=== PATIENT | male | born 1955 | race Caucasian/White ===

== ENCOUNTER 2016-09-05 09:32 | Emergency (ER) | payer OTHER ==
[2016-09-05 09:37] VITALS: BP 156/84; PULSE 67; RESP 18; TEMP 97.9; O2SAT 94
--- NOTE | 2016-09-05 09:55 | EDPHY ---
H & P Stated Complaint: L side facial droop since monday Time Seen by Provider: 09/05/16 09:39 HPI/ROS: CHIEF COMPLAINT: Left facial weakness HISTORY OF PRESENT ILLNESS: The patient presents to the emergency department with left facial weakness which has been present since Monday. The patient denies any associated numbness. He denies any peripheral complaints of numbness or weakness. The patient denies headache, ataxia, dysarthria or aphasia. The patient does have a pacemaker. He denies anticoagulant use. He does take a baby aspirin on a daily basis. REVIEW OF SYSTEMS: A comprehensive 10 point review of systems is otherwise negative aside from elements mentioned in the history of present illness. Source: Patient Exam Limitations: No limitations - Personal History Current Tetanus Diphtheria and Acellular Pertussis (TDAP): Yes - Medical/Surgical History Hx Asthma: No Hx Chronic Respiratory Disease: No Hx Diabetes: Yes Hx Cardiac Disease: Yes Hx Renal Disease: No Hx Cirrhosis: No Hx Alcoholism: No Hx HIV/AIDS: No Hx Splenectomy or Spleen Trauma: No Other PMH: PACERMAKER, HTN, HIGH CHOLD, NON FATTYSTEATO HEPATITIS (FATTY LIVER), CARPAL DONALDO SURG, DEVIATED SEPTUM, diabetes, trigger finger surgery - Social History Smoking Status: Never smoked - Physical Exam Exam: General Appearance: Alert, no distress Eyes: Pupils equal and round no pallor or injection ENT, Mouth: Mucous membranes moist Respiratory: There are no retractions, lungs are clear to auscultation Cardiovascular: Regular rate and rhythm Gastrointestinal: Abdomen is soft and nontender, no masses, bowel sounds normal Neurological: Alert and oriented x4, 5/5 strength noted all 4 extremities, cranial nerves 2-12 intact aside from a left 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 Skin: Warm and dry, no rashes Musculoskeletal: Neck is supple nontender Extremities: symmetrical, full range of motion Psychiatric: Patient is oriented X 3, there is no agitation Constitutional: Initial Vital Signs Temperature (C) 36.6 C 09/05/16 09:35 Heart Rate 67 09/05/16 09:35 Respiratory Rate 18 09/05/16 09:35 Blood Pressure 156/84 H 09/05/16 09:35 O2 Sat (%) 94 09/05/16 09:35 O2 Delivery Mode Room Air Allergies/Adverse Reactions: No Known Allergies Allergy (Unverified 03/25/14 23:05) Home Medications: Medication Instructions Recorded metFORMIN SR [Glucophage Xr] 2,000 mg PO DAILY@1800 12/29/09 sitaGLIPtin PHOSPHATE [Januvia 100 100 mg PO HS 12/29/09 MG (RX)] clonIDINE [Catapres (RX)] 0.1 mg PO HS 02/24/10 Atorvastatin Calcium [Lipitor 10 10 mg PO HS 03/25/14 mg (RX)] Diltiazem HCl [Cartia Xt] 120 mg PO HS 03/25/14 Losartan/Hydrochlorothiazide 1 each PO HS 03/25/14 [Hyzaar 100-25 Tablet] Aspirin [Aspirin 81mg (OTC)] 81 mg PO HS 03/28/14 Hydrocodone/APAP 5/325 [Racine 1 each PO DAILY PRN 03/28/14 5/325 (RX)] traMADol [Ultram] 50 mg PO DAILY PRN 03/28/14 Hydrocodone/Acetaminophen [[place]ac[place] 1 - 2 tab PO Q6H PRN #20 tab 03/29/14 5/325 (RX)] Meth/Meblue/Sod Phos/Psal/Hyos 1 each PO QID #20 capsule 03/29/14 [Uribel Capsule] Valacyclovir HCl [Valtrex] 1,000 mg PO TID #21 tab 09/05/16 predniSONE [prednisone 20mg (RX)] 3 tab PO DAILY #15 tab 09/05/16 Medical Decision Making ED Course/Re-evaluation: The patient presents to the emergency department with a clear case of a cranial nerve 7 palsy. The patient has no additional neurologic deficits noted on exam. The patient also has a pacemaker precluding MRI studies. I do feel the patient can be treated clinically based upon his presentation today. He will be discharged home with a prescription for Valtrex and prednisone. He is given customary aftercare instructions and return precautions. Departure - Departure Disposition: Home, Routine, Self-Care Clinical Impression: Shook's palsy Condition: Good Instructions: Shook Palsy (ED) Additional Instructions: 1. Take Valtrex and prednisone as directed. 2. Please use Lacri-Lube and artificial tears as needed for ocular irritation. 3. Please return to the emergency department should you developed new numbness, weakness, headache or new neurologic symptoms. 4. Please follow up as scheduled with your primary care provider. Referrals: Endy Cali MD [Primary Care Provider] - As per Instructions
== END 2016-09-05 10:10 | disposition home or self-care (01) ==
DX: G51.0 Bell's palsy (principal); E11.9 Type 2 diabetes mellitus without complications; I10 Essential (primary) hypertension; Z79.84 Long term (current) use of oral hypoglycemic drugs; Z79.82 Long term (current) use of aspirin; Z95.0 Presence of cardiac pacemaker

== ENCOUNTER → 2017-11-29 | Outpatient (CLI) | payer OTHER | LOC: FIMAGING 07:02 | PROVIDERS: ATTEND Orthopaedic Surgery | DX: M17.11 Unilateral primary osteoarthritis, right knee (principal); M25.461 Effusion, right knee ==

== ENCOUNTER 2017-12-12 06:25 | Observation (INO) | payer OTHER ==
--- NOTE | 2017-12-07 22:22 | GHP ---
[f rep st] HISTORY AND PHYSICAL CURRENT COMPLAINT: Right knee pain. HISTORY OF PRESENT ILLNESS: Mr. Taylor is a 62-year-old male with a long history of right knee pain, worsening with use and with time despite multiple conservative measures. He has gaik-fx-agiy osteoa rthritic changes in the knee and would like surgery in order to resolve the problem. ALLERGIES: He lists no drug allergies. CURRENT MEDICATIONS: Include cardia XT, clonidine, losartan with hydrochlorothiazide, metformin, mom etasone, pravastatin, ProAir, spironolactone. PRIOR MEDICAL PROBLEMS: Include arthritis, diabetes, high cholesterol, hepatitis, pacemaker, sleep a pnea. PRIOR SURGERIES: Include a trigger finger release, pacemaker, carpal tunnel release. SOCIAL HISTORY: He has never been a smoker. He is a moderate drinker. PHYSICAL EXAM: The patient has a mild varus angulation to his knee. He has osteophytic spurring not ed to the medial compartment with a slight gap to valgus stress suggesting loss of cartilage height. ASSESSMENT AND PLAN: Patient is status post right knee arthroplasty. Plan is to take him to the ope rating room to undergo right knee replacement. /[id number]/MODL
[~2017-12-12 06:25] MED LIST: ROPIVACAINE 0.2% 80 MG, EPINEPHrine 0.2 MG, KETOROLAC TROMETHAMINE 30 MG, morphINE 10 M... IU ONE; TRANEXAMIC ACID 3,000 MG in NS (SYRINGE) 50 ML IRR ONE
[2017-12-12] MEDS ORDERED: LIDOCAINE 1% 2 ML INJ ONE (06:31)
[2017-12-12] MEDS ORDERED: ACETAMINOPHEN 500 MG TAB PO ONE (06:38)
[2017-12-12] MEDS ORDERED: ceFAZolin 2 GM/DEXTROSE 100 ML IV ONE (06:38)
[2017-12-12] MEDS ORDERED: PREGABALIN 150 MG CAP PO ONE (06:38)
[2017-12-12] MEDS ORDERED: LIDOCAINE 1% 2 ML INJ ID PRN ×2 (06:39→08:49)
[2017-12-12] MEDS ORDERED: LR 1,000 ML IV ONE ×2 (06:39→08:49)
[2017-12-12] MEDS ORDERED: BACITRACIN 50,000 UNITS/10 ML SYR IRR ONE (07:57)
[2017-12-12] MEDS ORDERED: TRANEXAMIC ACID 3,000 MG/50 ML BAG IRR ONE (07:57)
[2017-12-12] MEDS ORDERED: POLYMYXIN B SULFATE 500,000 UNIT/10 ML SYR IRR ONE (07:57)
[2017-12-12] MEDS ORDERED: THROMBIN (BOVINE) 5,000 UNIT VIAL TP ONE (07:57)
[2017-12-12] MEDS ORDERED: CALCIUM CHLORIDE 1 GM/10 ML INJ ONE (07:57)
[2017-12-12] MEDS ORDERED: MIDAZOLAM 2 MG/2 ML VIAL ONE (08:17)
[2017-12-12] MEDS ORDERED: MIDAZOLAM 2 MG/2 ML VIAL IVP ONE (08:19)
--- NOTE | 2017-12-12 08:19 | PDANEPAE ---
ANE History of Present Illness right knee resurfacing/TKA ANE Past Medical History - Cardiovascular History Hx Hypertension: Yes Hx Arrhythmias: Yes Hx Chest Pain: No Hx Coronary Artery / Peripheral Vascular Disease: No Hx CHF / Valvular Disease: No Hx Palpitations: No - Pulmonary History Hx COPD: No Hx Asthma/Reactive Airway Disease: No Hx Recent Upper Respiratory Infection: No Hx Oxygen in Use at Home: No Hx Sleep Apnea: Yes Sleep Apnea Screening Result - Last Documented: Positive Pulmonary History Comment: MAO uses CPAP - Neurologic History Hx Cerebrovascular Accident: No Hx Seizures: No Hx Dementia: No - Endocrine History Hx Diabetes: Yes Endocrine History Comment: type 11 - Renal History Hx Renal Disorders: No Renal History Comment: kidney stone - Liver History Hx Hepatic Disorders: Yes Hepatic History Comment: fatty liver - Neurological & Psychiatric Hx Hx Neurological and Psychiatric Disorders: No - Congenital Disorder History Hx Congenital Disorders: Yes Congenital History Comment: HTN,hypercholesterolemia - GI History Hx Gastrointestinal Disorders: No - Other Health History Other Health History: none - Chronic Pain History Chronic Pain: No - Surgical History Prior Surgeries: trigger finger. 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: [employer] Pacemaker Model: adapta L ADDRLI Pacemaker Mode: AARI-DDDR Date Pacemaker Last Checked: 06/22 ANE Patient History - Allergies Allergies/Adverse Reactions: No Known Allergies Allergy (Verified 11/28/17 10:52) - Home Medications Home medications: home medication list seen and reviewed Home Medications: Aspirin [Aspirin 81mg (*)] 81 mg PO HS 11/28/17 [Last Taken 12/05/17] Diltiazem HCl [Cartia Xt] 120 mg PO HS 11/28/17 [Last Taken 12/11/17] Hydrocodone/Acetaminophen [[place] 5/325 (*)] 1 - 2 tab PO HS 11/28/17 [Last Taken 12/11/17] Losartan Potassium [Cozaar 50 mg (*)] 100 mg PO HS 11/28/17 [Last Taken 12/11/17 ] Pravastatin Sodium 20 mg PO HS 11/28/17 [Last Taken 12/11/17] clonIDINE [Catapres (*)] 0.4 mg PO HS 11/28/17 [Last Taken 12/11/17] metFORMIN SR [Glucophage XR 500 mg (*)] 2,000 mg PO HS 11/28/17 [Last Taken 12/20] Hydrochlorothiazide 12/05/17 [Last Taken Unknown] - NPO status NPO Since - Liquids (Date): 12/11/17 NPO Since - Liquids (Time): 22:00 NPO Since - Solids (Date): 12/11/17 NPO Since - Solids (Time): 19:00 - Anes Hx Anes Hx: no prior problems - Smoking Hx Smoking Status: Never smoked - Family Anes Hx Family Hx Anesthesia Complications: none ANE Labs/Vital Signs - Vital Signs Blood Pressure: 144/88 Heart Rate: 64 Respiratory Rate: 18 O2 Sat (%): 96 Height: 176.53 cm Weight: 106.594 kg ANE Physical Exam - Airway Neck exam: FROM Mallampati Score: Class 3 Mouth exam: small mouth opening - Pulmonary Pulmonary: no respiratory distress - Cardiovascular Cardiovascular: regular rate and rhythym - ASA Status ASA Status: III ANE Anesthesia Plan Anesthesia Plan: spinal Regional Anesthesia: single shot NB, adductor canal FNB
[2017-12-12] MEDS ORDERED: BUPIVACAINE/DEXTROSE 7.5MG/ML 2 ML SPINAL AMP SP ONE (08:23)
[2017-12-12] MEDS ORDERED: PROPOFOL/EMULSION 500 MG/50 ML BOTTLE IV ONE (08:23)
[2017-12-12] MEDS ORDERED: LIDOCAINE 2% 5 ML SDV ONE (08:23)
[2017-12-12] MEDS: BUPIVACAINE/EPI 0.5% 30 ML SDV ONE ×2 (09:22→10:33)
--- NOTE | 2017-12-12 09:33 | PDHPUP ---
History & Physical Update H&P update statement: This history and physical update is based on an assessment of the patient which was completed after admission or registration (within 24 hours), but prior to the surgery/procedure. H&P update: H&P reviewed & patient examined, no change in patient's condition since H&P completed
[2017-12-12] MEDS ORDERED: ROPIVACAINE HCL 150 MG/30 ML INJ ONE (10:17)
[2017-12-12] MEDS ORDERED: PROPOFOL 200 MG/20 ML VIAL ONE ×2 (10:31→11:05)
[2017-12-12] MEDS ORDERED: HYDROmorphONE/DILAUDID 1 MG/ML INJ IVP PRN (10:58)
[2017-12-12] MEDS ORDERED: ONDANSETRON 4 MG/2 ML VIAL IVP PRN ×2 (10:58→11:41)
[2017-12-12] MEDS ORDERED: NALOXONE HCL 0.4 MG/ML INJ IVP PRN (10:58)
[2017-12-12] MEDS ORDERED: oxyCODONE IR 5 MG TAB PO PRN (10:58)
[2017-12-12] MEDS ORDERED: LR 500 ML IV PRN (10:58)
[2017-12-12] MEDS ORDERED: ACETAMINOPHEN 500 MG TAB PO PRN (10:58)
[2017-12-12] MEDS ORDERED: fentaNYL 100 MCG/2 ML INJ IVP PRN (10:58)
[2017-12-12] MEDS ORDERED: ALBUTEROL 3 ML DEYVIAL IH PRN (10:58)
[2017-12-12] MEDS ORDERED: PROMETHAZINE HCL 25 MG/ML INJ IVP PRN ×2 (10:58→11:41)
--- NOTE | 2017-12-12 10:58 | POSTANESTH ---
Post Anesthetic Evaluation Cardiovascular Status: Normal, Stable Respiratory Status: Normal, Stable Level of Consciousness/Mental Status: Can Participate in Eval, Alert and Oriented Pain Control: Adequate, Prn Tx Ordered Nausea/Vomiting Control: Adequate, Prn Tx Ordered Complications Possibly Related to Anesthesia: None Noted
[2017-12-12] MEDS ORDERED: LACTULOSE 20 GM/30 ML UDCUP PO PRN (11:41)
[2017-12-12] MEDS ORDERED: PROMETHAZINE HCL 25 MG SUPPR PR PRN (11:41)
[2017-12-12] MEDS ORDERED: TAPENTADOL HCL 50 MG TAB PO PRN (11:41)
[2017-12-12] MEDS ORDERED: BISACODYL 10 MG SUPP PR PRN (11:41)
[2017-12-12] MEDS ORDERED: diphenhydrAMINE 25 MG CAP PO PRN (11:41)
[2017-12-12] MEDS ORDERED: METOCLOPRAMIDE 10 MG/2 ML VIAL IVP PRN (11:41)
[2017-12-12] MEDS ORDERED: DIPHENOXYLATE/ATROPINE LOMOTIL 1 TAB PO PRN (11:41)
[2017-12-12] MEDS ORDERED: MAGNESIUM HYDROXIDE 30 ML UDCUP PO PRN (11:41)
[2017-12-12] MEDS ORDERED: ONDANSETRON DISINTEGRATING 4 MG TAB PO PRN (11:41)
[2017-12-12] MEDS ORDERED: CYCLOBENZAPRINE 10 MG TAB PO PRN (11:41)
[2017-12-12] MEDS ORDERED: POLYETHYLENE GLYCOL 3350 17 GM PKT PO PRN (11:41)
[2017-12-12] MEDS ORDERED: TEMAZEPAM 15 MG CAP PO PRN (11:41)
--- NOTE | 2017-12-12 11:41 | POSTOPPROG ---
Post Op Note Date of Operation: 12/12/17 Surgeon: Gabbie Hummel Customer Operations Intern: coltrain Anesthesia: Epidural, IV Sedation Pre-op Diagnosis: r knee oa Procedure: r tkr Inf/Abcess present in the surg proc area at time of surgery?: No Depth: Deep Incisional (Fascial) EBL: 100-500
[2017-12-12] MEDS ORDERED: fentaNYL 100 MCG/2 ML INJ ONE (12:07)
[2017-12-12] MEDS ORDERED: KETOROLAC 15 MG/1 ML SDV ONE (12:26)
[2017-12-12] MEDS: KETOROLAC 15 MG/1 ML SDV IVP SCH ×2 (12:27→17:52)
[2017-12-12] MEDS: traMADol 50 MG TAB PO SCH ×2 (12:40→17:52)
--- NOTE | 2017-12-12 12:45 | GOP ---
[f rep st] OPERATIVE REPORT DATE OF OPERATION: SURGEON: Gabbie Hummel MD NEUROSURGEON: Gabbie Hummel MD CARTON LINER: Jai Donahue, AUNGA, LSA, whose presence was medically necessary. ANESTHESIA: By epidural nerve block plus IV sedation, as well as an adductor nerve block per surgeon 's request. PREOPERATIVE DIAGNOSIS: Right knee osteoarthritis. POSTOPERATIVE DIAGNOSIS: Right knee osteoarthritis. PROCEDURE PERFORMED: Right total knee arthroplasty. FINDINGS: INDICATIONS: This is a 62-year-old male with a several year history of right knee pain worsening wit h use and with time despite multiple conservative measures. He wishes to have surgery in order to re solve the problem. DESCRIPTION OF PROCEDURE: Patient brought to the operating room after the right side had been identi fied as correct side by the patient, nurse, and physician. Once in the operating room, he was given epidural nerve block and then placed under IV sedation. He had a tourniquet placed around the upper portion of the right thigh, and the right lower extremity was sterilely prepped and draped in the usu al fashion using GSI solution. Once prepped and draped, limb was exsanguinated, tourniquet inflated to 250 mmHg. Linear incision was made on the anterior portion of the knee with sharp dissection giordano ied down along the skin and subcutaneous layers, with bleeding controlled using electrocautery. A me dial parapatellar incision was made. The patella was everted, noted to have exposed bone at the waters lla. It was therefore decided to do a total knee replacement rather than a partial knee replacement. The patella was brought to the side but not everted. The ACL as well as the medial and lateral men iscus and the Hoffa pad were removed. Knee was brought to 90 degrees of flexion. A drill hole was m sunita 1 cm anterior to the intercondylar notch with an intramedullary guide placed within the femur, an d the end-cutting guide set at 5 degrees of valgus and set to remove 10 mm of bone. Once in place, o scillating saw was used to remove the distal end of the femur until achieving a flat surface. The in termedullary guide been removed, as well as the end-cutting guide was removed. Once completed, carti ghassan was removed from the posterior condyles of the femur and a sizing guide placed on the cut surfac e of bone noted a size 6. It seemed to fit best without notching the anterior cortex of the femur. Therefore, drill holes were made, the guide was removed, and a size 6, 4-in-1 cutting block was put i nto place and pinned into place. Anterior, posterior and chamfer cuts were made, and a size 6 trial was put into place. Knee was able to achieve full extension, suggesting an adequate amount of bone h ad been removed. The knee was then brought to maximal flexion with the tibia subluxed anteriorly, an d an external tibial guide was put into place, set in neutral varus-valgus and slight posterior slope . It was set to remove 2 mm of bone from the low side of the tibia which was the medial side. Once pinned into place, a drop art was used to ensure proper alignment. It was noted to be neutral varus- valgus, slight posterior slope. Therefore, a locking pin was put into place. An oscillating saw was used to remove the proximal portion of the tibia until achieving a flat cut. Trial femur, tibia, an d liner were placed within the knee. Knee was able to achieve full extension, suggesting an adequate amount of bone was removed. Therefore, all the trials were removed from the knee. Tibia was sublux ed anteriorly. Two sizes were trialed on the proximal tibia. Noted a size 6 seemed to fit best. It was therefore placed in slight external rotation, pinned into place. Keel punch passed through the guide, as well as drill hole guide for a press-fit component. Once removed, the knee was brought to full extension. Patella was then everted. Soft tissue removed from around its border. It was measu red to be 25 mm in thickness. Oscillating saw was used to move the sidehand portion of patella, leavin g 15 mm of bone. Multiple sizes were trialed on the cut surface, and 35 mm button seemed to fit best . Therefore, a sizing guide was clamped into place and drill holes were made for the patellar compon ent. Once finished, the knee was brought to maximal flexion, tibia subluxed anteriorly, with a size 6 triathlon Tritanium tibial press-fit component from [employer], put into place, noted to fit securely. A size 6 right cruciate retaining triathlon press-fit femoral component was put in place and noted to fit securely. Polyethylene trial was placed in the tibial tray. Knee brought to full extension. A 35 mm Triathlon Tritanium asymmetric press-fit patella from [employer] was put in place and noted to fit securely. Multiple trials were then placed in the tibial tray, and a 9 mm insert seemed to fit b est. Therefore, a size 6, 9 mm Triathlon X3 polyethylene component was put into place. Once complet ed, joint cocktail was injected into the posterior capsule, as well as the periosteum of the femur an d tibia, and then the extensor mechanism. Tranexamic acid was irrigated through the knee and the khloe rniquet deflated at 66 minutes. Any bleeding was controlled using electrocautery. 0 Vicryl suture w as then used in a fkigiv-eb-bqjap type stitch in order to close the extensor mechanism, with plasma g el placed intraarticularly. 0 Vicryl and 2-0 Vicryl sutures used for the subcutaneous layers with pl asma gel placed external to the extensor mechanism, and a 3-0 V-Loc suture in a running subcuticular stitch used for the skin. 30 cc of Marcaine was infused around the actual incision itself, and the w ound was then dressed with Steri-Strips, Xeroform, 4 x 4, wrapped in Kerlix. Leg was completely undr aped in the operating room, tourniquet removed from the thigh and an Jay wrap placed around the knee. Patient was then woken up, transferred onto a stretcher, [facility] /[id number]/MODL
[2017-12-12] MEDS: ceFAZolin 2 GM/DEXTROSE 100 ML IV SCH (17:55)
[2017-12-12] MEDS: SENNOSIDES/DOCUSATE SODIUM TAB PO SCH (20:38)
[2017-12-12] MEDS: FAMOTIDINE 20 MG TAB PO SCH (20:38)
[2017-12-12] MEDS ORDERED: PRAVASTATIN SODIUM 20 MG TAB PO SCH (21:00)
[2017-12-12] MEDS ORDERED: metFORMIN SR 500 MG TAB PO SCH (21:00)
[2017-12-12] MEDS ORDERED: DILTIAZEM CD 120 MG CAP PO SCH (21:00)
[2017-12-12] MEDS: LR 1,000 ML IV SCH (21:06)
[2017-12-13] MEDS: traMADol 50 MG TAB PO SCH ×3 (00:29→11:25)
[2017-12-13] MEDS: KETOROLAC 15 MG/1 ML SDV IVP SCH ×2 (00:30→06:04)
[2017-12-13] MEDS: ceFAZolin 2 GM/DEXTROSE 100 ML IV SCH (00:34)
[2017-12-13] MEDS: LR 1,000 ML IV SCH (06:03)
[2017-12-13] MEDS ORDERED: RIVAROXABAN 10 MG TAB PO SCH (09:00)
[2017-12-13] MEDS ORDERED: LOSARTAN/HCTZ 50/12.5 1 TAB PO SCH (09:00)
--- NOTE | 2017-12-13 10:36 | SOAPPROG ---
SOAP Progress Note Assessment/Plan: Assessment: Pt is POD#1 s/p RTKA. He is doing well with mild pain. He has been working with PT/OT. He reports he has not been able to urinate since surgery. PE: Dressing clean and dry SLR intact Calf soft to compression without pain NV intact RLE Plan: Plan for patient to discharge today. He will follow up in 7-10 days for repeat evaluation and dressing removal 12/13/17 10:35 12/22/17 08:13 Objective: Vital Signs Temp Pulse Resp BP Pulse Ox 36.6 C 60 16 128/59 H 99 12/13/17 07:28 12/13/17 07:28 12/13/17 07:28 12/13/17 07:28 12/13/17 07:28 Laboratory Results 12/13/17 04:36 12/12/17 12/13/17 12/14/17 05:59 05:59 05:59 Intake Total [id number] Output Total 40 100 Balance [id number] ICD10 Worksheet Patient Problems: Problems Problem Status Onset Osteoarthritis of right knee Acute Unilateral primary osteoarthritis, right knee Acute - ICD10 Problem Qualifiers (1) Osteoarthritis of right knee (2) Unilateral primary osteoarthritis, right knee
[2017-12-13] MEDS: FAMOTIDINE 20 MG TAB PO SCH (11:26)
[2017-12-13] MEDS: SENNOSIDES/DOCUSATE SODIUM TAB PO SCH (11:27)
[2017-12-13 11:37] VITALS: BP 166/76
[2017-12-13] MEDS ORDERED: PNEUMOCOCCAL 0.5ML VACCINE VIAL IM ONE (11:43)
--- NOTE | 2017-12-13 14:58 | ASMTCMCOM ---
CM Note CM Note Notes: Pt medically stable for d/c, no CM d/c needs identified. Date Signed: 12/13/2017 02:57 PM Electronically Signed By:MELA Licea
--- NOTE | 2017-12-13 14:59 | ASMTLACE ---
LACE Length of stay for Answers: 1 day current admission Acuity / Level of Answers: No Care: Did the patient have an inpatient admission? Comorbidities - select Answers: Diabetes (uncontrolled or all that apply controlled) Other Notes: Pacemaker; HTN # of Emergency department Answers: 0 visits in the last 6 months Score: 3 Date Signed: 12/13/2017 02:58 PM Electronically Signed By:MELA Licea
--- NOTE | 2018-01-10 12:05 | GDS ---
[f rep st] DISCHARGE SUMMARY CURRENT COMPLAINT: Right knee pain. HISTORY OF PRESENT ILLNESS: Mr. Taylor is a 62-year-old male with a several year history of right kn ee pain worsening with use and with time despite multiple conservative measures. He wishes to have s urgery in order to resolve the problem. HOSPITAL COURSE: Patient brought to the operating room on the day of admission where he underwent a right total knee arthroplasty. Postoperatively, he progressed steadily with physical therapy and his pain was able to be kept under control to the point he was able to be discharged on 12/14/2017 with instructions to continue with his physical therapy regimen and follow up in the office for further ev aluation. DISCHARGE DIAGNOSIS: Right knee osteoarthritis. /[id number]/MODL
== END 2017-12-13 12:30 | disposition home or self-care (01) ==
LOC: F3N 06:25
PROVIDERS: ADMIT Orthopaedic Surgery; ATTEND Orthopaedic Surgery
PROC: 0SRC0JZ Replacement of Right Knee Joint with Synthetic Substitute, Open Approach (ICD-10-PCS; principal; 2017-12-12 08:30)
PROC: 8E0YXCZ Robotic Assisted Procedure of Lower Extremity (ICD-10-PCS; principal; 2017-12-12 08:30)
DX: M17.11 Unilateral primary osteoarthritis, right knee (principal); M25.761 Osteophyte, right knee; E11.9 Type 2 diabetes mellitus without complications; E78.5 Hyperlipidemia, unspecified; G47.33 Obstructive sleep apnea (adult) (pediatric); I10 Essential (primary) hypertension; Z87.442 Personal history of urinary calculi; Z95.0 Presence of cardiac pacemaker; Z23 Encounter for immunization
CPT/HCPCS: 20985; 27447; 73560; 90471; 97110; 97116; 97161; 97165; 97530; 97535; G0378; G0009; J0171; J0690; J1885; J2250; J2270; J2405; J2704; J2795; J3010